=== PATIENT | female | born 1960 | race Caucasian/White ===

== ENCOUNTER 2017-08-05 20:47 | Emergency (ER) | payer OTHER ==
--- NOTE | 2017-08-05 21:02 | PDOC ---
History of Present Illness - General Chief Complaint: Allergic Reaction Stated Complaint: ALLERGIC REACTION Time Seen by Provider: 08/05/17 21:01 - History of Present Illness Initial Comments: 56 year old female with PMH of HTN, previous allergies, and sever sleep issues presenting with voice change and throat swelling of sudden onset. Patient states that she started to feel a strange sensation in her tongue aroudn 12:00 but didn't think much of it. At 15:00 she ate a shrimp based meal and then experienced her throat closing around 16:00. She called her friend who gave yaquelin one oral bendaryl after which she noticed improvement so she drank a glass of white wine around 17:00. At 18:00 Her symptoms worsened and she eventually walked into the [facility] urgent care clinic. She then received an epi pen around 20:00 which took affect after approximately 30 minutes. She was told to come to the ED. On presentation to the ED she was only complaining of throat heaviness and voice change but had no issues breathing. Throughout this entire event she denies nausea, vomiting, diarrhea, rash, fevers, respiratory difficulty, or other symptoms. She eats shrimp a few times a week and has never had an issue with it. She also Has been on lisinopril for the past 5 years without issue. She takes her medications at night and hasn't taken any of her medications yet today. 08/05/17 21:21 Past History - Past Medical History Allergies/Adverse Reactions: Allergies Allergy/AdvReac Type Severity Reaction Status Date / Time No Known Allergies Allergy Verified 08/05/17 20:54 Home Medications: Ambulatory Orders Enalapril Maleate [Vasotec -] 10 mg PO DAILY 12/18/12 Lamotrigine [Lamictal] 150 mg PO HS 12/18/12 Omeprazole [Prilosec (RX)] 20 mg PO DAILY 12/18/12 Quetiapine Fumarate [Seroquel] 400 mg PO HS 12/18/12 Zolpidem Tartrate [Ambien] 10 mg PO HS 12/18/12 Alprazolam [Xanax] 0.5 mg PO TID PRN #20 tablet 02/19/13 Lurasidone HCl [Latuda -] 40 mg PO HS 02/19/13 Amlodipine Besylate [Norvasc -] 5 mg PO DAILY #5 tablet 08/06/17 Diphenhydramine HCl [Benadryl -] 25 mg PO Q6H PRN #28 capsule 08/06/17 Prednisone [Deltasone] 40 mg PO DAILY 4 Days #8 tablet 08/06/17 Diabetes: Yes (PRE DIABETIC) HTN: Yes Psychiatric Problems: Yes (depression,anxiety) - Suicide/Smoking/Psychosocial Hx Smoking Status: Yes Smoking History: Never smoked Have you smoked in the past 12 months: No Number of Cigarettes Smoked Daily: 8 Information on smoking cessation initiated: No 'Breaking Loose' booklet given: 04/01/16 Hx Alcohol Use: No Drug/Substance Use Hx: No Substance Use Type: None Review of Systems - Review of Systems Constitutional: No: Chills, Diaphoresis, Fever HEENTM: No: Tearing, Double Vision Respiratory: No: Cough, Orthopnea, Shortness of Breath, SOB at Rest, Stridor, Wheezing, Productive cough Cardiac (ROS): No: Chest Pain, Edema, Irregular Heart Rate, Chest Tightness ABD/GI: No: Diarrhea, Nausea, Vomiting : No: Burning, Dysuria Musculoskeletal: No: Joint Pain, Joint Swelling, Joint Stiffness Integumentary: No: Change in Color, Lumps, Pallor, Pruritus, Rash Neurological: No: Numbness, Paresthesia, Seizure, Weakness Psychiatric: Yes: Anxiety *Physical Exam - Vital Signs Last Vital Signs Temp Pulse Resp BP Pulse Ox 98.2 F 97 H 22 164/81 98 08/05/17 20:54 08/05/17 20:54 08/05/17 20:54 08/05/17 20:54 08/05/17 20:54 - Physical Exam General Appearance: Yes: Nourished, Appropriately Dressed. No: Apparent Distress HEENT: positive: EOMI, KALE, Other (Malanpati IV but no tongue swelling. ). negative: Normal ENT Inspection, Normal Voice (Voice sounds as if their is an upper airway constriction) Neck: positive: Trachea midline, Normal Thyroid, Supple. negative: Tender, Rigid Medical Decision Making - Medical Decision Making 56 year old female with allergic reaction of unknown etiology but possibly related to enalapril or sushi. Voice improved with Solumedrol 125 and Benadryl [address] Chan covering for [facility] and he agreed with stopping enalapril and starting amlodipine 5 MG with Tuesday follow up. Given one dose amlodipine here with good toleration. We wanted to admit the patient for obs but she refused hubert she was AMA'd with Benadryl, amlodipine, and steroid prescription. 08/06/17 01:39 *DC/Admit/Observation/Transfer Diagnosis at time of Disposition: AMA - Signed out against medical advice - Discharge Dispostion Disposition: AGAINST MEDICAL ADVICE - Prescriptions Prescriptions: Amlodipine Besylate [Norvasc -] 5 mg PO DAILY #5 tablet Diphenhydramine HCl [Benadryl -] 25 mg PO Q6H PRN #28 capsule PRN Reason: throat itching Prednisone [Deltasone] 40 mg PO DAILY 4 Days #8 tablet - Referrals Referrals: Reji Angel MD [Primary Care Provider] - - Patient Instructions - Post Discharge Activity
[2017-08-05 21:05] VITALS: BP 164/81; PULSE 97; TEMP 98.2; BMI 25.0
[2017-08-05] MEDS ORDERED: SODIUM CHLORIDE 1,000 ML IV STA (21:20)
[2017-08-05] MEDS ORDERED: methylPREDNISolone NA SUCC 125 MG/2 ML VIAL IVPUSH ONE (21:20)
[2017-08-05] MEDS ORDERED: methylPREDNISolone NA SUCC 125 MG/2 ML VIAL ONE (21:21)
--- NOTE | 2017-08-05 22:20 | PDOC ---
Attending Attestation - Resident Resident Name: ZaneNatashajayda - ED Attending Attestation I have performed the following: I have examined & evaluated the patient, The case was reviewed & discussed with the resident, I agree w/resident's findings & plan - HPI HPI: 08/06/17 00:05 Pt comes with allergic reaction and SOB and closing sensation of her throat. Pt states that she felt tongue swelling this afternoon around 3-4PM. SHe took a couple benadryl. States that she ordered shrimp dish from a restaurant, and felt her throat closing thereafter. Unclear if this is a shrimp allergy or other food allergy, or if it is due to her antiHTN meds (enalapril; pt takes the pills at night. Called EMS, as she lives alone. [facility] Ambulance, she was treated with 50mg benadryl and 0.3mg epinephrine SQ. Pt comes to the ER and received solumedrol. - Physicial Exam PE: 08/06/17 00:10 Agree with resident exam. However, pt's voice still sounds muffled, and she is insisting that she feels better and she wants to go home. SHe is absolutely refusing to stay in the hospital. - Medical Decision Making 08/06/17 00:11 Pt understands that she may stop breathing in the middle of the night and she understands that we have no idea what she is allergic to. She understands that she may get worse overnight, but insists on taking the risk and going home. Pt is willing to sign AMA. Refusing to stay in the ER for 24 hr observation.
[2017-08-05] MEDS ORDERED: amLODIPine BESYLATE 5 MG TABLET (FP) PO ONE (23:52)
[2017-08-06] MEDS ORDERED: amLODIPine BESYLATE 5 MG TABLET (FP) ONE (00:05)
== END 2017-08-06 00:43 | disposition left against medical advice (07) ==
LOC: JER 20:47
PROC: 3E033GC Introduction of Other Therapeutic Substance into Peripheral Vein, Percutaneous Approach (ICD-10-PCS; principal; 2017-08-05)
PROC: 3E0333Z Introduction of Anti-inflammatory into Peripheral Vein, Percutaneous Approach (ICD-10-PCS; 2017-08-05)
DX: T78.40XA Allergy, unspecified, initial encounter (principal); R49.0 Dysphonia; I10 Essential (primary) hypertension; F41.9 Anxiety disorder, unspecified; R73.03 Prediabetes
CPT/HCPCS: 96374; 96375; 99283-25; J7030

== ENCOUNTER 2017-08-19 23:28 | Inpatient (IN) | payer OTHER ==
--- NOTE | 2017-08-19 23:51 | PDOC ---
Attending Attestation - Resident Resident Name: Jonathon Jimenez - ED Attending Attestation I have performed the following: I have examined & evaluated the patient, The case was reviewed & discussed with the resident, I agree w/resident's findings & plan, Exceptions are as noted - Physicial Exam PE: 08/20/17 00:48 Patient is awake and alert, well-nourished, pale appearing; normocephalic, atraumatic PERRLA, EOMI, conjunctivae were pale No JVD CTA tachycardic, regular Abdomen is soft, nondistended, nontender No lower extremity edema - Medical Decision Making 08/20/17 00:50 56-year-old female with history of fibromyalgia, chronic anemia presents to the ER with pallor, generalized weakness, malaise and worsening dyspnea with minimal exertion and at rest. In the ER, patient is mildly tachycardic with H&H of 3 and 11. Will obtain iron deficiency anemia studies. Will transfuse 2 units of packed cells. Will admit. <Ferdinand Chase - Last Filed: 08/20/17 00:48> - HPI HPI: The patient is a 56 year old female with a significant past medical history of anemia, pre-diabetic, hypertension, depression, and anxiety who presents to the emergency department for evaluation of chest tightness. The patient reports worsening dyspnea exacerbated by lying flat for the past few days. The patient reports 2 episodes of black, tarry stools. Denies headache, dizziness, fever, chills, constipation, diarrhea, nausea, vomiting, and any urinary issues. <Royal Alaniz - Last Filed: 08/20/17 01:11> Heart Score/ECG Review - ECG Impressions Comment:: EKG was reviewed by Dr. Chase at 23: 56. Impression: Sinus tachycardia. Possible left atrial enlargement. Nonspecific ST abnormality. Abnormal ECG. Vent. rate: 109 bpm WI interval: 122 ms QRS duration: 88 ms QT/QTc: 344/463 ms PRT axes: 43 35 29 <Royal Alaniz - Last Filed: 08/20/17 01:11> Attestations - Attestations Documentation prepared by Royal Alaniz, acting as medical assistant per diem for Ferdinand Chase MD. <Royal Alaniz - Last Filed: 08/20/17 01:11>
[2017-08-19 23:52] LABS: BASO % 0.5 % (0-2.0); EOS % 0.9 % (0-4.5); LYMPH % 24.1 % (8-40); MCH 27.2 pg (25.7-33.7); MCHC 31.8 g/dl (32.0-36.0); MEAN CELL VOLUME 85.6 fl (80-96); MONO % 7.1 % (3.8-10.2); NEUT % 67.4 % (42.8-82.8); PLATELET COUNT 146 K/MM3 (134-434); RDW 15.9 % (11.6-15.6); WHITE BLOOD COUNT 5.6 K/mm3 (4.0-10.0)
[2017-08-20 00:08] LABS: ADD RBC MORPHOLOGY YES; HEMATOCRIT 11.1 % (32.4-45.2); HEMOGLOBIN 3.5 GM/dL (10.7-15.3)
[2017-08-20 00:13] LABS: ANION GAP 15 (8-16); BILIRUBIN,TOTAL 0.2 mg/dL (0.2-1.0); BLOOD UREA NITROGEN 30 mg/dL (7-18); CALCIUM 8.1 mg/dL (8.5-10.1); CHLORIDE 105 mmol/L (98-107); CO2 17 mmol/L (21-32); CREATININE 1.7 mg/dL (0.55-1.02); GLUCOSE,RANDOM 117 mg/dL (74-106); POTASSIUM 4.5 mmol/L (3.5-5.1); SGOT/AST 33 U/L (15-37); SGPT/ALT 25 U/L (12-78); SODIUM 137 mmol/L (136-145); TOT PROT 8.5 g/dl (6.4-8.2)
[2017-08-20 00:16] LABS: ALK PHOS 104 U/L (45-117); N-TERMINAL BNP 616.21 pg/ml (5-125)
[2017-08-20 00:31] LABS: HEMATOCRIT 10.5 % (32.4-45.2); MCH 27.2 pg (25.7-33.7); MCHC 32.1 g/dl (32.0-36.0); MEAN CELL VOLUME 84.8 fl (80-96); MEAN PLT VOLUME 9.8 fl (7.5-11.1); PLATELET COUNT 125 K/MM3 (134-434); RBC 1.24 M/mm3 (3.60-5.2); RDW 15.8 % (11.6-15.6)
--- NOTE | 2017-08-20 00:36 | PDOC ---
History of Present Illness - General Chief Complaint: Chest Pain Stated Complaint: CHEST PAIN Time Seen by Provider: 08/19/17 23:30 History Source: Patient Exam Limitations: No Limitations - History of Present Illness Initial Comments: 08/20/17 00:31 The patient is a 56F with a PMH of HTN, previous allergies, anxiety, who presents to the ER complaining of chest tightness. The patient states that she' s had worsening SOB for the past few days, not alleviated by anything but is exacerbated by laying down flat. She describes the tightness as going across her whole chest. The patient also endorses 2 episodes of black, tarry stools "a few" days ago. She denies any hemoptysis, hx of blood clots, recent travel, recent surgery, and hx of cancer. Past History - Past Medical History Allergies/Adverse Reactions: Allergies Allergy/AdvReac Type Severity Reaction Status Date / Time No Known Allergies Allergy Verified 08/19/17 23:40 Home Medications: Ambulatory Orders Lamotrigine [Lamictal] 150 mg PO HS 12/18/12 Omeprazole [Prilosec (RX)] 20 mg PO DAILY 12/18/12 Quetiapine Fumarate [Seroquel] 400 mg PO HS 12/18/12 Zolpidem Tartrate [Ambien] 10 mg PO HS 12/18/12 Lurasidone HCl [Latuda -] 40 mg PO HS 02/19/13 Diphenhydramine HCl [Benadryl -] 25 mg PO Q6H PRN #28 capsule 08/06/17 Prednisone [Deltasone] 40 mg PO DAILY 4 Days #8 tablet 08/06/17 LORazepam [Ativan] 1 mg PO TID PRN 08/19/17 Anemia: Yes COPD: No Diabetes: Yes (PRE DIABETIC) HTN: Yes Psychiatric Problems: Yes (depression,anxiety) - Suicide/Smoking/Psychosocial Hx Smoking Status: Yes Smoking History: Never smoked Have you smoked in the past 12 months: No Number of Cigarettes Smoked Daily: 8 Information on smoking cessation initiated: No 'Breaking Loose' booklet given: 04/01/16 Hx Alcohol Use: No Drug/Substance Use Hx: No Substance Use Type: None Review of Systems - Review of Systems Able to Perform ROS?: Yes Comments:: 08/20/17 00:36 GENERAL/CONSTITUTIONAL: No fever or chills. No weakness. HEAD, EYES, EARS, NOSE AND THROAT: No change in vision. No ear pain or discharge. No sore throat. CARDIOVASCULAR: Positive for chest tightness. No chest pain, palpitations, or lightheadedness. RESPIRATORY: No cough, wheezing, shortness of breath, or hemoptysis. GASTROINTESTINAL: No nausea, vomiting, diarrhea, constipation, or abdominal pain. GENITOURINARY: No dysuria, frequency, hematuria, or change in urination. MUSCULOSKELETAL: No joint or muscle swelling or pain. No neck or back pain. SKIN: No rash or lesions. NEUROLOGIC: No headache, numbness, tingling, weakness, loss of consciousness, or change in strength/sensation. ENDOCRINE: No increased thirst. No abnormal weight change. HEMATOLOGIC/LYMPHATIC: No anemia, easy bleeding, or history of blood clots. ALLERGIC/IMMUNOLOGIC: No hives or skin allergy. Is the patient limited Kenyan proficient: No *Physical Exam - Vital Signs Last Vital Signs Temp Pulse Resp BP Pulse Ox 98.2 F 109 H 16 107/56 96 08/19/17 23:40 08/19/17 23:40 08/19/17 23:40 08/19/17 23:40 08/19/17 23:40 - Physical Exam Comments: 08/20/17 00:36 GENERAL: Well developed, well nourished. Awake and alert. Very pale, but in no acute distress. HEENT: Normocephalic, atraumatic. Hearing grossly normal. Moist mucous membranes. PERRLA, EOMI. No conjunctival pallor. Sclera are non-icteric. NECK: Supple. Full ROM. CARDIOVASCULAR: Regular rate and rhythm. No murmurs, rubs, or gallops. PULMONARY: No evidence of respiratory distress. Lungs clear to auscultation bilaterally. No wheezing, rales or rhonchi. ABDOMINAL: Soft. Non-tender. Non-distended. No rebound or guarding. GENITOURINARY: No CVA tenderness bilaterally. RECTAL: External hemorrhoids present, nonthromosed. Normal rectal tone. Light colored stool noted. MUSCULOSKELETAL: Normal range of motion at all joints. No bony deformities or tenderness. EXTREMITIES: No cyanosis. No clubbing. No edema. No calf tenderness or swelling. SKIN: Warm and dry. Normal capillary refill. No rashes. No jaundice. NEUROLOGICAL: Alert, awake, appropriate. Cranial nerves 2-12 intact. Gait is normal without ataxia. PSYCHIATRIC: Cooperative. Good eye contact. Appropriate mood and affect. Heart Score/ECG Review #1 ECG reviewed & interpreted by me at: 23:58 General ECG Interpretation: Sinus Rhythm, Normal Rate, Normal Intervals, No acute ischemic changes Compared to previous ECG there are: Changes noted 08/20/17 00:37 Sinus tach Vent rate 109 [place] 122 QRS 88 QTc 363 No STD or JOSE F noted No acute ischemic changes noted ED Treatment Course - LABORATORY CBC & Chemistry Diagram: 08/20/17 00:19 08/19/17 23:41 - ADDITIONAL ORDERS Additional order review: Laboratory Results 08/19/17 08/19/17 23:45 23:41 D-Dimer < 200 Sodium 137 Potassium 4.5 Chloride 105 Carbon Dioxide 17 L Anion Gap 15 BUN 30 H Creatinine 1.7 H Creat Clearance w eGFR 31.09 Random Glucose 117 H Calcium 8.1 L Total Bilirubin 0.2 D AST 33 ALT 25 Alkaline Phosphatase 104 Creatine Kinase 21 L Troponin I < 0.02 B-Natriuretic Peptide 616.21 H Total Protein 8.5 H Albumin 3.0 L 08/19/17 23:41 RBC 1.30 L D MCV 85.6 MCHC 31.8 L RDW 15.9 H MPV 10.0 D Neutrophils % 67.4 Lymphocytes % 24.1 Monocytes % 7.1 Eosinophils % 0.9 Basophils % 0.5 - RADIOLOGY Radiology Studies Ordered: Category Date Time Status CHEST X-RAY PORTABLE* [RAD] Stat Radiology 08/19/17 23:34 Ordered Medical Decision Making - Medical Decision Making 08/20/17 00:38 The patient is a 56F with a PMH of HTN and anxiety who presents to the ER with chest tightness, worse when laying down. The patient is comfortable on exam but did complain of black, tarry stools. H/H is 3 and 11. Repeat CBC sent. Will transfuse with 2 units. 08/20/17 02:03 I have endorsed the patient to Dr. Moise for admission under Dr. Ann. Will go to med/surg bed as the patient has stable vitals and is only requiring transfusions. *DC/Admit/Observation/Transfer Diagnosis at time of Disposition: Anemia Qualifiers: Anemia type: unspecified type Qualified Code(s): D64.9 - Anemia, unspecified - Discharge Dispostion Condition at time of disposition: Guarded Decision to Admit order: Yes - Referrals - Patient Instructions - Post Discharge Activity
[2017-08-20 00:43] LABS: HEMOGLOBIN 3.4 GM/dL (10.7-15.3)
[2017-08-20 00:47] LABS: PLATELET ESTIMATE ADEQUATE
[2017-08-20] MEDS ORDERED: ONDANSETRON 4 MG/2 ML VIAL IVPUSH ONE (01:14)
[2017-08-20] MEDS ORDERED: ONDANSETRON 4 MG/2 ML VIAL ONE (01:23)
[2017-08-20] MEDS ORDERED: ONDANSETRON 4 MG/2 ML VIAL IVPUSH PRN (02:07)
[2017-08-20 03:39] VITALS: BMI 28.5
[2017-08-20] MEDS: LORazepam 1 MG TABLET PO PRN ×3 (04:26→18:46)
[2017-08-20 10:37] LABS: HEMATOCRIT 13.9 % (32.4-45.2); MCH 28.2 pg (25.7-33.7); MCHC 33.4 g/dl (32.0-36.0); MEAN CELL VOLUME 84.3 fl (80-96); MEAN PLT VOLUME 9.6 fl (7.5-11.1); PLATELET COUNT 107 K/MM3 (134-434); RBC 1.65 M/mm3 (3.60-5.2); RDW 14.7 % (11.6-15.6); WHITE BLOOD COUNT 3.8 K/mm3 (4.0-10.0)
--- NOTE | 2017-08-20 10:39 | HP ---
Admitting History and Physical - Admission Chief Complaint: shortness of breath History of Present Illness: 56 yo female, presented to ED with shortness of breath, found to have severe anemia with hgb 3. Notes she felt she had black tarry stool a couple of days ago, but none now. Does note that she was told of anemia several months ago, but unsure what the measurements were. Notes no colonoscopy or EGD in the past. Notes that she was advised to see junior business analyst, but had not made appt yet. Notes no history of anemia before recently, no family history of anemia that she knows of. Gets anxiety often and wants to leave hospital as soon as possible. Getting blood transfusion now and notes that she feels much better, no longer having shortness of breath. 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, former warehouse hand Home Medications - Allergies Allergies/Adverse Reactions: Allergies Allergy/AdvReac Type Severity Reaction Status Date / Time No Known Allergies Allergy Verified 08/19/17 23:40 - Home Medications Home Medications: Ambulatory Orders Lamotrigine [Lamictal] 150 mg PO HS 12/18/12 Omeprazole [Prilosec (RX)] 20 mg PO DAILY 12/18/12 Quetiapine Fumarate [Seroquel] 200 mg PO HS 12/18/12 Zolpidem Tartrate [Ambien] 10 mg PO HS 12/18/12 Lurasidone HCl [Latuda -] 40 mg PO HS 02/19/13 LORazepam [Ativan] 1 mg PO TID PRN 08/19/17 Family Disease History - Family Disease History Family History: Unremarkable Review of Systems - Review of Systems Constitutional: reports: Weakness. denies: Unintentional Wgt. Loss Eyes: reports: No Symptoms HENT: denies: Difficult Swallowing, Epistaxis, Throat Pain Neck: denies: Pain on Movement, Tenderness Cardiovascular: denies: Chest Pain, Palpitations Respiratory: denies: Cough Gastrointestinal: denies: Abdominal Pain, Diarrhea, Dysphagia, Nausea, Vomiting Genitourinary: denies: Burning, Discharge, Dysuria Neurological: denies: Change in LOC Physical Examination Vital Signs: Vital Signs Temperature 97.8 F 08/20/17 10:00 Pulse Rate 102 H 08/20/17 10:00 Respiratory Rate 102 H 08/20/17 10:00 Blood Pressure 114/62 08/20/17 10:00 O2 Sat by Pulse Oximetry (%) 98 08/20/17 03:44 Constitutional: Yes: Well Nourished, No Distress, Calm, Anxious Eyes: Yes: Conjunctiva Clear, EOM Intact, PERRL HENT: Yes: Atraumatic, Normocephalic Neck: Yes: Supple, Trachea Midline Cardiovascular: Yes: Regular Rate and Rhythm, S1, S2. No: Murmur Respiratory: Yes: Regular, CTA Bilaterally. No: Rales, Rhonchi, Wheezes Gastrointestinal: Yes: Normal Bowel Sounds, Soft, Abdomen, Obese. No: Distention, Tenderness Edema: No Neurological: Yes: Alert, Oriented Labs: CBC, BMP 08/19/17 23:41 Imaging - Results Chest X-ray: Report Reviewed (weak inspiration, mildly prominent mediastinum) Problem List - Problems (1) Anemia Assessment/Plan: -getting blood transfused now. Will recheck CBC after 2 units, will likely need additional PRBC -heme to consult, but patient does not want to stay prolonged in the hospital. Agreeing to get additional blood transfusion, so if hgb comes back above 8, can consider discharge with further outpatient workup for anemia (has appt with Dr Angel on Tuesday -PMD) Code(s): D64.9 - ANEMIA, UNSPECIFIED Qualifiers: Anemia type: unspecified type Qualified Code(s): D64.9 - Anemia, unspecified
[2017-08-20 10:47] LABS: HEMOGLOBIN 4.7 GM/dL (10.7-15.3)
--- NOTE | 2017-08-20 10:57 | CONSULT ---
Consult Consult Specialty:: Hematology/Oncology Referred by:: Reason for Consultation:: Chronic anemia - History of Present Illness Chief Complaint: Severe anemia at presentation History of Present Illness: 56 y/o female with PMhx of depression, anxiety, severe anemia in the past now presenting to the ED with complaints of wakness and 2 episodes of dark tarry stools. Her Hgb at presentation was noted to be 3.5 g/dl with a normal MCV and other indices. She was also noted to be tachycardic at presentation. Heme/Onc has been consulted to work-up patient's anemia. On speaking with patient, she says she was diagnosed wit anemia in the past a few months ago but is unable to give me specifics. She says she has occasional dark stools and nose bleeds. She was recently noted to have swelling in response to enalapril intake so she believes that she maybe allergic to enalapril. 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, former center receptionist Home Medications - Allergies Allergies/Adverse Reactions: Allergies Allergy/AdvReac Type Severity Reaction Status Date / Time No Known Allergies Allergy Verified 08/19/17 23:40 - Home Medications Home Medications: Ambulatory Orders Lamotrigine [Lamictal] 150 mg PO HS 12/18/12 Omeprazole [Prilosec (RX)] 20 mg PO DAILY 12/18/12 Quetiapine Fumarate [Seroquel] 200 mg PO HS 12/18/12 Zolpidem Tartrate [Ambien] 10 mg PO HS 12/18/12 Lurasidone HCl [Latuda -] 40 mg PO HS 02/19/13 LORazepam [Ativan] 1 mg PO TID PRN 08/19/17 Review of Systems Findings/Remarks: weak, tired Physical Exam Vital Signs: Vital Signs Temperature 97.8 F 08/20/17 10:00 Pulse Rate 102 H 08/20/17 10:00 Respiratory Rate 102 H 05/19/18 10:00 Blood Pressure 114/62 05/19/18 10:00 O2 Sat by Pulse Oximetry (%) 98 08/20/17 03:44 Constitutional: Yes: Well Nourished Eyes: Yes: WNL HENT: Yes: WNL Neck: Yes: WNL Cardiovascular: Yes: WNL Respiratory: Yes: WNL Gastrointestinal: Yes: WNL ...Rectal Exam: Yes: WNL Renal/: Yes: WNL Breast(s): Yes: WNL Musculoskeletal: Yes: WNL Extremities: Yes: WNL Integumentary: Yes: WNL Neurological: Yes: WNL Labs: CBC, BMP 08/20/17 09:45 08/19/17 23:41 Assessment/Plan 56 y/o female, poor historian , scanty past medical history now presenting with severe anemia (Hgb 3.5) 1.Severe anemia -transfusion goal- 7g/dl. Would not recommend transfusing much above this goal for today as patient may become volume overloaded -awaiting peripheral smear- will update tomorrow -other cell lines- plts and WBC's appear normal, brisk reticulocytosis- hence high likelihood of GI etiology of pain hammad with Hx of black tarry stools, recommend GI evaluation for EGD + colonoscopy -although MCV appears normal, please check serum Iron, TIBC, transferrin, ferritin levels, B12, MMA, serum folate, copper, TSH,HIV, Hepatitis panel, Serum EPO level, direct and indirect Dorie test, serum LDH -if patient does not have nutritional, blood loss anemia or autoimmune anemia she will need a bone marrow biopsy with cytogenetics and molecular studies to see if she has refractory anemia, RARS etc (MDS) -She needs close outpatient hematology follow-up Thank you for the consultation. Will continue to follow the patient closely.
[2017-08-20 11:08] LABS: LDH 103 U/L (84-246)
[2017-08-20] MEDS: PANTOPRAZOLE 20 MG TABLET (FP) PO SCH (11:15)
[2017-08-20 12:07] LABS: PLATELET ESTIMATE DECREASED
[2017-08-20 12:12] LABS: ERYTHROCYTE SEDIMENTATION RATE 120 mm/hr (0-30)
[2017-08-20] MEDS: ACETAMINOPHEN 325 MG TABLET (FP) PO PRN (18:46)
[2017-08-20] MEDS ORDERED: SODIUM CHLORIDE 0.9% 500 ML INFUS.BAG IV ONE (18:47)
[2017-08-20 20:13] LABS: HEMATOCRIT 17.3 % (32.4-45.2); MCHC 33.4 g/dl (32.0-36.0); MEAN CELL VOLUME 83.9 fl (80-96); MEAN PLT VOLUME 9.7 fl (7.5-11.1); PLATELET COUNT 119 K/MM3 (134-434); RBC 2.07 M/mm3 (3.60-5.2)
[2017-08-20 20:14] LABS: HEMOGLOBIN 5.8 GM/dL (10.7-15.3)
[2017-08-20] MEDS ORDERED: ACETAMINOPHEN 325 MG TABLET (FP) PO ONE (20:45)
[2017-08-20 20:47] LABS: URINE APPEARANCE CLEAR; URINE BILIRUBIN NEGATIVE (<2.0 mg/dL); URINE BLOOD NEGATIVE (NEGATIVE); URINE COLOR STRAW; URINE GLUCOSE (UA) NEGATIVE (NEGATIVE); URINE KETONE NEGATIVE (NEGATIVE); URINE LEUK ESTERASE NEGATIVE (NEGATIVE); URINE NITRITE NEGATIVE (NEGATIVE); URINE PROTEIN NEGATIVE (NEGATIVE); URINE UROBILINOGEN NEGATIVE mg/dL (0.2-1.0)
[2017-08-20] MEDS ORDERED: PT OWN MED DRAWER 7, Y5N ONE (20:57)
[2017-08-20] MEDS: LURASIDONE HCL 40 MG TABLET PO SCH (22:01)
[2017-08-20] MEDS: QUEtiapine FUMARATE 200 MG TABLET PO SCH (22:01)
[2017-08-20] MEDS: lamoTRIgine 100 MG TABLET (FP) PO SCH (22:01)
[2017-08-20] MEDS: SODIUM CHLORIDE NASAL SPRAY 44 ML BOTTLE NS PRN (22:02)
[2017-08-20] MEDS: ZOLPIDEM TARTRATE 5 MG TABLET PO PRN (22:06)
[2017-08-20 22:30] LABS: BILIRUBIN,TOTAL 0.6 mg/dL (0.2-1.0)
[2017-08-20] MEDS ORDERED: diphenhydrAMINE HCL 25 MG CAPSULE (FP) PO ONE (23:30)
[2017-08-21 08:06] LABS: SERUM IRON SATURATION 3 % (15-55); TOTAL IRON BINDING CAPACITY 448 ug/dL (250-450); UIBC 433 ug/dL (131-425)
[2017-08-21 08:07] LABS: BASO % 0.4 % (0-2.0); HEMATOCRIT 19.5 % (32.4-45.2); LYMPH % 15.6 % (8-40); MCH 27.9 pg (25.7-33.7); MCHC 33.3 g/dl (32.0-36.0); MEAN CELL VOLUME 83.6 fl (80-96); MEAN PLT VOLUME 9.6 fl (7.5-11.1); MONO % 5.5 % (3.8-10.2); NEUT % 77.5 % (42.8-82.8); PLATELET COUNT 107 K/MM3 (134-434); RBC 2.33 M/mm3 (3.60-5.2); RDW 14.8 % (11.6-15.6); WHITE BLOOD COUNT 4.6 K/mm3 (4.0-10.0)
[2017-08-21 08:54] LABS: HEMOGLOBIN 6.5 GM/dL (10.7-15.3)
[2017-08-21] MEDS ORDERED: diphenhydrAMINE HCL 25 MG CAPSULE (FP) PO ONE ×2 (10:23→18:45)
--- NOTE | 2017-08-21 10:32 | PN ---
Progress Note, Physician History of Present Illness: Patient had fever yesterday while getting 4th unit and was held, given later after no transfusion reaction seen on pathology eval. Does feel weak, but improved from yesterday. This morning Hgb 6. On further discussion today, patient notes that she did see a vocational nurse several months ago (Dr Almonte) for the anemia and had bone marrow biopsy (did not seem to recall this yesterday on interviewing her). States that she did not get the results of the bone marrow biopsy. Did discuss with her the need ot rule out any GI blood loss , to require EGD and colonoscopy, but patient refusing at this time. Described the procedures to her and states that she will "think about it" but not agreeing to have them done now. - Current Medication List Current Medications: Active Medications Acetaminophen (Tylenol -) 650 mg PO Q6H PRN PRN Reason: FEVER Last Admin: 08/20/17 18:46 Dose: 650 mg Diphenhydramine HCl (Benadryl -) 25 mg PO ONCE ONE Stop: 08/21/17 10:24 Lamotrigine (Lamictal -) 150 mg PO HS STEPHEN Last Admin: 08/20/17 22:01 Dose: 150 mg Lorazepam (Ativan -) 1 mg PO TID PRN PRN Reason: ANXIETY Last Admin: 08/20/17 18:46 Dose: 1 mg Lurasidone HCl (Latuda -) 40 mg PO HS STEPHEN Last Admin: 08/20/17 22:01 Dose: 40 mg Ondansetron HCl (Zofran Injection) 4 mg IVPUSH Q6H PRN PRN Reason: NAUSEA Pantoprazole Sodium (Protonix -) 20 mg PO DAILY STEPHEN Last Admin: 08/20/17 11:15 Dose: 20 mg Quetiapine Fumarate (Seroquel -) 400 mg PO HS STEPHEN Last Admin: 08/20/17 22:01 Dose: 400 mg Sodium Chloride ([place]al [place] -) 2 spray NS BID PRN PRN Reason: NASAL CONGESTION Last Admin: 08/20/17 22:02 Dose: 2 spray Zolpidem Tartrate (Ambien -) 10 mg PO HS PRN PRN Reason: INSOMNIA Last Admin: 08/20/17 22:06 Dose: 10 mg - Objective Vital Signs: Vital Signs Temperature 98.1 F 08/21/17 05:54 Pulse Rate 100 H 08/21/17 05:54 Respiratory Rate 22 08/21/17 05:54 Blood Pressure 118/64 08/21/17 05:54 O2 Sat by Pulse Oximetry (%) 96 08/20/17 21:00 Constitutional: Yes: No Distress, Calm Cardiovascular: Yes: Regular Rate and Rhythm, S1, S2. No: Murmur Respiratory: Yes: Regular, CTA Bilaterally. No: Rales, Rhonchi, Wheezes Gastrointestinal: Yes: Normal Bowel Sounds, Soft, Abdomen, Obese. No: Distention, Tenderness Edema: No Neurological: Yes: Alert, Oriented Labs: CBC, BMP 08/21/17 06:00 08/20/17 21:50 Problem List - Problems (1) Anemia Code(s): D64.9 - ANEMIA, UNSPECIFIED Qualifiers: Anemia type: unspecified type Qualified Code(s): D64.9 - Anemia, unspecified Assessment/Plan Current Active Problems Anemia (Acute) Anxiety HTN -has iron def anemia currently. No active bleeding noted, but patient not agreeing to gastroenterology workup currently. Will start on iron. Advised patient to have bone marrow biopsy results sent to PMD for review, as she states that she has an appt tomorrow with PMD. If Hgb increases to 7.5 after this blood transfusion (appreciate hematology input) will discharge with office follow-up.
[2017-08-21] MEDS: PANTOPRAZOLE 20 MG TABLET (FP) PO SCH (11:32)
--- NOTE | 2017-08-21 11:42 | PN ---
Progress Note (short form) - Note Progress Note: Hematology/Oncology follow-up Note S : Patient continues to feel weak today. She would like to be discharged as soon as possible. Last Vital Signs Temp Pulse Resp BP Pulse Ox 98.1 F 100 H 22 118/64 96 08/21/17 05:54 08/21/17 05:54 08/21/17 05:54 08/21/17 05:54 08/20/17 21:00 PE : aoX3, PERRLA CTA (BL) S1S2 WNL Soft abdomen No c/c/e CBC, BMP 08/21/17 06:00 08/20/17 21:50 Current Medications Generic Name Dose Route Start Last Admin Trade Name Freq PRN Reason Stop Dose Admin Acetaminophen 650 mg 08/20/17 18:18 08/20/17 18:46 Tylenol - PO 650 mg Q6H PRN Administration FEVER Ascorbic Acid 500 mg 08/21/17 10:45 Vitamin C - PO DAILY STEPHEN Ferrous Sulfate 325 mg 08/21/17 10:45 Feosol - PO DAILY STEPHEN Lamotrigine 150 mg 08/20/17 22:00 08/20/17 22:01 Lamictal - PO 150 mg HS STEPHEN Administration Lorazepam 1 mg 08/20/17 02:05 08/20/17 18:46 Ativan - PO 1 mg TID PRN Administration ANXIETY Lurasidone HCl 40 mg 08/20/17 22:00 08/20/17 22:01 Latuda - PO 40 mg HS STEPHEN Administration Ondansetron HCl 4 mg 08/20/17 02:07 Zofran Injection IVPUSH Q6H PRN NAUSEA Pantoprazole Sodium 20 mg 08/20/17 10:00 08/21/17 11:32 Protonix - PO 20 mg DAILY STEPHEN Administration Quetiapine Fumarate 400 mg 08/20/17 22:00 08/20/17 22:01 Seroquel - PO 400 mg HS STEPHEN Administration Sodium Chloride 2 spray 08/20/17 19:09 08/20/17 22:02 [place] Nas[place] - NS 2 spray BID PRN Administration NASAL CONGESTION Zolpidem Tartrate 10 mg 08/20/17 22:00 08/20/17 22:06 Ambien - PO 10 mg HS PRN Administration INSOMNIA A/P : 56 y/o female, poor historian , scanty past medical history now presenting with severe anemia (Hgb 3.5) -Hgb of 6.5 today, recommend one more unit of pRBC transfusions, orders placed -reviewed peripheral smear today : dimorphic population of RBC's reflecting her recent multiple transfusions. Several reticulocytes noted. No anisocytosis or poikilocytosis -strongly recommend undergoing EGD/colonoscopy but patient refusing currently. -also needs follow-up with hematology to follow-up her iron panel and assess need for IV vs. PO iron
[2017-08-21] MEDS: ASCORBIC ACID 500 MG TABLET (FP) PO SCH (11:44)
[2017-08-21] MEDS: FERROUS SO4 325 MG TABLET (FP) PO SCH (11:44)
[2017-08-21] MEDS: ACETAMINOPHEN 325 MG TABLET (FP) PO PRN (11:44)
[2017-08-21] MEDS: LORazepam 1 MG TABLET PO PRN (15:29)
[2017-08-21] MEDS ORDERED: ACETAMINOPHEN 325 MG TABLET (FP) PO ONE (18:45)
[2017-08-21] MEDS: QUEtiapine FUMARATE 200 MG TABLET PO SCH (22:05)
[2017-08-21] MEDS: lamoTRIgine 100 MG TABLET (FP) PO SCH (22:05)
[2017-08-21] MEDS: LURASIDONE HCL 40 MG TABLET PO SCH (22:06)
[2017-08-21] MEDS: ZOLPIDEM TARTRATE 5 MG TABLET PO PRN (22:08)
[2017-08-21] MEDS: SODIUM CHLORIDE NASAL SPRAY 44 ML BOTTLE NS PRN (23:25)
[2017-08-22 01:19] LABS: HEMATOCRIT 24.5 % (32.4-45.2); HEMOGLOBIN 8.3 GM/dL (10.7-15.3); MCH 28.1 pg (25.7-33.7); MEAN CELL VOLUME 82.8 fl (80-96); PLATELET COUNT 103 K/MM3 (134-434); RBC 2.96 M/mm3 (3.60-5.2); WHITE BLOOD COUNT 5.1 K/mm3 (4.0-10.0)
[2017-08-22 06:06] LABS: SERUM IRON SATURATION 7 % (15-55); TOTAL IRON BINDING CAPACITY 394 ug/dL (250-450); UIBC 365 ug/dL (131-425)
[2017-08-22 07:54] LABS: HEMATOCRIT 25.8 % (32.4-45.2); HEMOGLOBIN 8.7 GM/dL (10.7-15.3); MCH 28.1 pg (25.7-33.7); MCHC 33.6 g/dl (32.0-36.0); MEAN CELL VOLUME 83.6 fl (80-96); MEAN PLT VOLUME 9.4 fl (7.5-11.1); PLATELET COUNT 118 K/MM3 (134-434); RBC 3.08 M/mm3 (3.60-5.2); RDW 14.8 % (11.6-15.6)
[2017-08-22] MEDS: FERROUS SO4 325 MG TABLET (FP) PO SCH (09:30)
[2017-08-22] MEDS: PANTOPRAZOLE 20 MG TABLET (FP) PO SCH (09:30)
[2017-08-22] MEDS: ASCORBIC ACID 500 MG TABLET (FP) PO SCH (09:30)
[2017-08-22 13:44] VITALS: BP 121/67; PULSE 90; TEMP 98.7
[2017-08-22] MEDS ORDERED: PT OWN MED DRAWER 7, Y5N ONE (14:29)
--- NOTE | 2017-08-22 14:48 | DS ---
Physical Examination Vital Signs: Vital Signs Temperature 37.1 C 08/22/17 13:43 Pulse Rate 90 08/22/17 13:43 Respiratory Rate 18 08/22/17 13:43 Blood Pressure 121/67 08/22/17 13:43 O2 Sat by Pulse Oximetry (%) 96 08/22/17 09:00 Constitutional: Yes: Well Nourished, No Distress, Calm Cardiovascular: Yes: Regular Rate and Rhythm. No: Gallop, Murmur, Rub Respiratory: Yes: Regular, CTA Bilaterally. No: Rales, Rhonchi, Wheezes Gastrointestinal: Yes: Normal Bowel Sounds, Soft. No: Distention, Tenderness Extremities: Yes: WNL Edema: No Labs: CBC, BMP 08/22/17 07:10 08/20/17 21:50 Discharge Summary Reason For Visit: ANEMIA Current Active Problems Anemia (Acute) Hospital Course: Ms Huntley is a 56 year old female who comes in and was found to have severe anemia. She was transfused 6 units without difficulty. She was started on iron supplementations. She was seen by hematology. She is recommended to follow up with outpatient hematology. She expressed interest in finding a new field property loss specialist , she says she has an appt with Dr Angel and will ask for a referral. She is safe for discharge home with close follow up. Condition: Stable - Instructions Diet, Activity, Other Instructions: resume previous diet and activity Referrals: Reji Angel MD [Primary Care Provider] - Disposition: HOME - Home Medications Comprehensive Discharge Medication List: Ambulatory Orders Lamotrigine [Lamictal] 150 mg PO HS 12/18/12 Omeprazole [Prilosec (RX)] 20 mg PO DAILY 12/18/12 Quetiapine Fumarate [Seroquel -] 200 mg PO HS 12/18/12 Zolpidem Tartrate [Ambien] 10 mg PO HS 12/18/12 Lurasidone HCl [Latuda -] 40 mg PO HS 02/19/13 LORazepam [Ativan] 1 mg PO TID PRN 08/19/17 Ascorbate Calcium [Vitamin C] 500 mg PO DAILY #30 tablet 08/21/17 Ferrous Sulfate 325 mg PO DAILY #30 tablet 08/21/17
--- NOTE | 2017-08-23 00:39 | EKG ---
Test Reason : Blood Pressure : / mmHG Vent. Rate : 109 BPM Atrial Rate : 109 BPM P-R Int : 122 ms QRS Dur : 088 ms QT Int : 344 ms P-R-T Axes : 043 035 029 degrees QTc Int : 463 ms SINUS TACHYCARDIA POSSIBLE LEFT ATRIAL ENLARGEMENT NONSPECIFIC ST ABNORMALITY ABNORMAL ECG WHEN COMPARED WITH ECG OF 19-FEB-2013 09:27, NO SIGNIFICANT CHANGE WAS FOUND Confirmed by ALEJANDRA FRIAS MD ([id number]) on 08/23/2017 12:39:10 AM Referred By: Confirmed By:ALEJANDRA FRIAS MD
== END 2017-08-22 16:24 | disposition home or self-care (01) | DRG 812 ==
LOC: JER 23:28 → JERBED 08-20 02:04 → J7W 08-20 03:15
PROVIDERS: ADMIT Internal Medicine; ATTEND Internal Medicine
PROC: 30233N1 Transfusion of Nonautologous Red Blood Cells into Peripheral Vein, Percutaneous Approach (ICD-10-PCS; principal; 2017-08-20)
DX: D50.9 Iron deficiency anemia, unspecified (principal); M79.7 Fibromyalgia; R00.0 Tachycardia, unspecified; R73.03 Prediabetes; I10 Essential (primary) hypertension; F32.9 Major depressive disorder, single episode, unspecified; F41.9 Anxiety disorder, unspecified; Z87.891 Personal history of nicotine dependence
CPT/HCPCS: 36415; 36430; 71045-TC-FY; 80053; 81003; 82247; 82272; 82540; 82550; 82607; 82728; 82962; 83540; 83550; 83615; 83880; 84484; 84520; 85025; 85027; 85044; 85379; 85651; 86078; 86850; 86900; 86901; 86922; 87040; 93005; 93010; 99285-25; P9038; P9058